=== PATIENT | male | born 1970 | race Caucasian/White ===

== ENCOUNTER 2018-11-26 17:24 | Emergency (ER) | payer SELFPAY ==
--- NOTE | 2018-11-26 17:40 | ED ---
Substance Abuse/Use - HPI Summary HPI Summary: This patient is a 48 year old M brought to ED via EMS with a chief complaint of overdose at 1500 today. 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 Patient was found by grandson passed out on the lawn. Patient has not been sleeping well, so he took two "sleeping pills" given from a friend that he states now were opiates. Patient took the pills at 1500 today since he did not sleep last night and was beginning to feel ill. Patient experienced LOC and was given Narcan by EMS. Patient states he does not take opiates regularly. Patient had four drinks of alcohol last night. Patient takes Aleve every day. Patient has had difficulty staying asleep for the past month. He reports back pain and snoring at night. The patient rates the pain 7.5/10 in severity. Symptoms aggravated by nothing. Symptoms alleviated by Narcan. Patient reports tiredness, mild AQUINO, dizziness, mild trouble breathing, nausea, congestion, lower back pain that has started after climbing at work, and feeling safe at home. Patient denies SI, HI, CP, abdominal pain. PMHx of sleep apnea, seasonal allergies, but no DM, HTN. Patient denies PSHx. Patient smokes 1PPD, rarely drinks alcohol, but no drugs. - History Of Current Complaint Stated Complaint: OVERDOSE PER EMS Time Seen by Provider: 11/26/18 17:33 Hx Obtained From: Patient Ingestion History: Type/Name Of Drug - Opiates, Amount Ingested - 2 pills, Approximate Time Of Ingestion - 1500 Overdose Characteristics: Oral Character: Lethargic Aggravating Factor(s): Nothing Alleviating Factor(s): Medication - Narcan per EMS Associated Signs And Symptoms: Negative - SI, HI, CP, abdominal pain, Sleep Disturbance - Unable to stay asleep, Shortness Of Breath - Mild trouble breathing, Nausea, Other: - Congestion, lower back pain, dizziness, mild AQUINO, tiredness - Allergies/Home Medications Allergies/Adverse Reactions: Allergies Allergy/AdvReac Type Severity Reaction Status Date / Time Penicillins Allergy GI Upset Verified 11/26/18 17:56 seasonal Allergy Congestion Uncoded 11/26/18 17:56 PMH/Surg Hx/FS Hx/Imm Hx Endocrine/Hematology History: Denies: Hx Diabetes Cardiovascular History: Denies: Hx Hypercholesterolemia, Hx Hypertension Respiratory History: Reports: Hx Seasonal Allergies, Hx Sleep Apnea - Surgical History Surgery Procedure, Year, and Place: Denies - Social History Alcohol Use: Rare Hx Substance Use: No Substance Use Type: Reports: None Hx Tobacco Use: Yes Smoking Status (MU): Current Every Day Smoker - 1PPD Review of Systems ENT: Other - Congestion Negative: Chest Pain Respiratory: Other - Mild trouble breathing Positive: Nausea. Negative: Abdominal Pain Positive: Myalgia - Lower back pain Neurological: Other - Tiredness, dizziness Positive: Headache - Mild Psychological: Other - Negative SI/HI All Other Systems Reviewed And Are Negative: Yes Physical Exam - Summary Physical Exam Summary: Appearance: well appearing, no pain distress Skin: warm, dry, reflects adequate perfusion Head/face:normal Eyes:EOMI, RENE ENT: mucous membranes moist Neck: supple, non-tender Respiratory: CTA, breath sounds present Cardiovascular:RRR, pulses symmetrical Abdomen: non-tender, soft Bowel Sounds:present Musculoskeletal:normal, strength/ROM intact Neuro:normal, sensory motor intact, A&Ox3, drowsy Triage Information Reviewed: Yes Vital Signs On Initial Exam: Initial Vitals Temp Pulse Resp BP Pulse Ox 98.1 F 77 18 135/91 98 11/26/18 17:36 11/26/18 17:36 11/26/18 17:36 11/26/18 17:36 11/26/18 17:36 Vital Signs Reviewed: Yes Course/Dx - Course Course Of Treatment: This patient is a 48 year old M brought to ED via EMS with a chief complaint of overdose at 1500 today. Patient states his friend gave him two pills of opiates that he thought were sleeping pills. He was found passed out on his lawn and was given Narcan by EMS, which woke him up. Patient will be signed out to GISELA Mendoza upon shift change at 189911/26/18 pending observation. - Diagnoses Provider Diagnoses: Opiate overdose Discharge - Sign-Out/Discharge Documenting (check all that apply): Sign-Out Patient Signing out patient TO: Sal Bucio - Patient will be signed out to GISELA Mendoza upon shift change at 189911/26/18 for observation. Patient Received Moderate/Deep Sedation with Procedure: No - Discharge Plan Condition: Stable Prescriptions: Naloxone Nasal [place]* [Narcan Nasal [place]] 4 mg NA ONCE PRN #1 spr PRN Reason: overdose symptoms Patient Education Materials: Prescription Opioid Overdose (ED) Referrals: [facility] [Outside] [facility] [Outside] Additional Instructions: Do not use medications not prescribed to you. Do not use street drugs. Many street drugs are not what you think they are. Do not drive today. You have been given referral should you think the need help with drug or alcohol use. Return if worse, new symptoms or other concerns. - Billing Disposition and Condition Condition: STABLE - Attestation Statements Document Initiated by Joseibe: Yes Documenting Scribe: Karson Kitchen Provider For Whom April is Documenting (Include Credential): Matt Brown MD Scribe Attestation: I, Karson Kitchen, scribed for Matt Brown MD on 11/26/18 at 1915. Scribe Documentation Reviewed: Yes Provider Attestation: The documentation as recorded by the Karson boyle accurately reflects the service I personally performed and the decisions made by me, Matt Brown MD Status of Scribe Document: Viewed
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
[2018-11-26 20:30] VITALS: BP 135/91
== END 2018-11-26 20:32 | disposition home or self-care (01) ==
LOC: ED 17:24
DX: T40.601A Poisoning by unspecified narcotics, accidental (unintentional), initial encounter (principal); Y92.9 Unspecified place or not applicable; F17.210 Nicotine dependence, cigarettes, uncomplicated; Z88.0 Allergy status to penicillin
CPT/HCPCS: 99283

== ENCOUNTER 2019-01-22 18:48 | Emergency (ER) | payer SELFPAY ==
[2019-01-22] MEDS ORDERED: NS 0.9% 1000 ML** 1,000 ML IV ONE (18:57)
[2019-01-22] MEDS ORDERED: fentaNYL* 50 MCG/ML 2 ML VIAL (100 MCG VIAL) IV SLOW PU ONE (19:02)
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
[2019-01-22 19:16] LABS: ABS Basophils 0.2 10^3/ul (0-0.2); ABS Eosinophils 0.4 10^3/ul (0-0.6); ABS Lymphocytes 2.5 10^3/ul (1.0-4.8); ABS Monocytes 0.6 10^3/ul (0-0.8); Eosinophil % 3.8 %; Hematocrit 45 % (42-52); Hemoglobin 15.4 g/dL (14.0-18.0); Lymphocyte % 21.6 %; Mean Corpuscular HGB Conc 34 g/dL (31-36); Mean Corpuscular Hemoglobin 30 pg (27-31); Mean Corpuscular Volume 87 fL (80-94); Mean Platelet Volume 9.3 fL (7.4-10.4); Nucleated Red Blood Cells % 0.1; Platelet Count 238 10^3/uL (150-450); Red Cell Distribution Width 14 % (10-15); White Blood Count 11.7 10^3/uL (3.5-10.8)
[2019-01-22 19:23] LABS: INR 1.03 (0.82-1.09)
[2019-01-22 19:33] LABS: ALT 23 U/L (7-52); AST 21 U/L (13-39); Albumin 4.4 g/dL (3.2-5.2); Albumin/Globulin Ratio 1.6 (1-3); Alkaline Phosphatase 87 U/L (34-104); Anion Gap 7 mmol/L (2-11); BUN/Creatinine Ratio 23.5 (8-20); Blood Urea Nitrogen 24 mg/dL (6-24); CO2 Carbon Dioxide 23 mmol/L (22-32); Calcium 9.2 mg/dL (8.6-10.3); Chloride 107 mmol/L (101-111); EGFR African American 93.5 (>60); EGFR Non-African American 77.3 (>60); Globulin 2.8 g/dL (2-4); Glucose 108 mg/dL (70-100); Potassium 3.8 mmol/L (3.5-5.0); Sodium 137 mmol/L (135-145); Total Protein 7.2 g/dL (6.4-8.9)
[2019-01-22 19:43] LABS: Alcohol < 10 mg/dL (<10)
[2019-01-22] MEDS ORDERED: Morphine 4 MG/ML VIAL (1 ml) 4 MG/ML VIAL IV ONE ×2 (19:56→21:44)
[2019-01-22] MEDS ORDERED: Iohexol 300* (CONTRAST) 10 ML SDV IV ONE (20:52)
[2019-01-22] MEDS ORDERED: Tetan/Diph/Pertus SYR(Tdap)* 0.5 ML SYR(BOOSTRIX) use SYR IM ONE (21:27)
[2019-01-22] MEDS ORDERED: Cyclobenzaprine TAB* 10 MG PO ONE (21:50)
[2019-01-22 22:45] VITALS: BP 137/86
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
== END 2019-01-22 22:43 | disposition home or self-care (01) ==
LOC: ED 18:48
DX: S92.332A Displaced fracture of third metatarsal bone, left foot, initial encounter for closed fracture (principal); S42.002A Fracture of unspecified part of left clavicle, initial encounter for closed fracture; V23.4XXA Motorcycle driver injured in collision with car, pick-up truck or van in traffic accident, initial encounter; Y92.410 Unspecified street and highway as the place of occurrence of the external cause; Z88.0 Allergy status to penicillin; F17.210 Nicotine dependence, cigarettes, uncomplicated; Z23 Encounter for immunization
CPT/HCPCS: 36415; 70450; 70486; 71260; 72125; 74177; 80053; 80320; 85025; 85610; 90471; 90715; 96361; 96374; 96375; 96376; 99283; A9270-GY; G0480; J2270; J3010; Q9967

== ENCOUNTER → 2019-01-26 11:42 | Day surgery (SDC) | payer OTHER ==
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
[~2019-01-26 11:42] MED LIST: Acetaminophen TAB* 325 MG PO PRN; Buffered Lidocaine 1% SYRIN* 1 ML/SYRINGE INTRADERM ONE; Bupivacaine 0.25% SDV PF* 10 ML VIAL INJ ONE; Dexamethasone IV* 4 MG/ML 1 ML (4 MG) ONE; DiMENhydriNATE IV* 50 MG/ML VIAL IV PUSH PRN; Glycopyrrolate IV* 0.2 MG/ML 1 ML VIAL ONE; HYDROmorphone INJ1* 1 MG/ML SYRINGE ONE; Ketorolac INJ* 30 MG/ML 1 ML VIAL ONE; Lactated Ringers 1000 ML Bag* 1,000 ML IV SCH; Metoclopramide IV* 5 MG/ML 2 ML VIAL ONE; Midazolam* 1 MG/ML 2 ML VIAL (2 MG) ONE; Naloxone* 0.4 MG/ML 1 ML VIAL IV PRN; Neostigmine Methylsulfate* 1 MG/ML 10 ML VIAL (1 mg/ml) ONE; Nicotine PATCH 21 MG/24 HR* PATCH TRANSDERM SCH; Nicotine Patch Removal NOTE FOLLOW UP SCH; Ondansetron INJ* 2 MG/ML VIAL ONE; Propofol* 10 MG/ML 20 ML BTL ONE; Rocuronium* 10 MG/ML VIAL ONE; ceFAZolin 2 GM in NS PREMIX(*) 2 GM/100 ML BAG IVPB ONE; fentaNYL* 50 MCG/ML 2 ML VIAL (100 MCG VIAL) IV PRN; fentaNYL* 50 MCG/ML 2 ML VIAL (100 MCG VIAL) ONE; oxyCODONE TAB* 5 MG TAB ONE
[2019-01-26] MEDS: oxyCODONE TAB* 5 MG TAB PO PRN ×2 (17:15→17:17)
[2019-01-26 18:09] VITALS: BP 140/83
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
== END | disposition home or self-care (01) ==
LOC: OR 11:42
PROVIDERS: ATTEND Orthopaedic Surgery
DX: S42.022A Displaced fracture of shaft of left clavicle, initial encounter for closed fracture (principal); V23.4XXA Motorcycle driver injured in collision with car, pick-up truck or van in traffic accident, initial encounter; Y92.410 Unspecified street and highway as the place of occurrence of the external cause; F17.210 Nicotine dependence, cigarettes, uncomplicated; G47.33 Obstructive sleep apnea (adult) (pediatric)
CPT/HCPCS: 76000; A9270-GY; C1713; C1776; J0690; J1100; J1170; J1885; J2250; J2405; J2704; J2710; J2765; J3010; J3490